=== PATIENT | female | born 1965 | race Hispanic/Latino ===

== ENCOUNTER 2018-12-10 05:44 | Day surgery (SDC) | payer MEDICAID ==
[~2018-12-10] VITALS: Ht 165.1 cm; Wt 96.2 kg
[~2018-12-10 05:44] MED LIST: DULO60CA44 PO; EMPA25TA PO; INSLAN SQ; METF-527 PO; OMEP40CA37 PO; SIMV40TA5 PO; SODIUM CHLORIDE 0.9% 1000ML 1,000 ML IV ONE; ZOLP10TA2 PO; [UNRECOGNIZED DRUG - CODE] PO
[2018-12-10 06:54] VITALS: BP 122/50
[2018-12-10] MEDS ORDERED: RISPERDAL PO (07:09)
[2018-12-10] MEDS ORDERED: METF-446 PO (07:09)
[2018-12-10 07:57] VITALS: BP 104/53
[2018-12-10 08:00] VITALS: BP 110/53
[2018-12-10 08:07] VITALS: BP 109/67
[2018-12-10 08:12] VITALS: BP 128/73
== END 2018-12-10 08:35 | disposition home or self-care (01) ==
LOC: ENDO 05:44 → DAH 05:44 → ENDO 08:35
PROVIDERS: ATTEND Internal Medicine
DX: K29.70 Gastritis, unspecified, without bleeding (principal); B96.81 Helicobacter pylori [H. pylori] as the cause of diseases classified elsewhere; K21.9 Gastro-esophageal reflux disease without esophagitis; E66.9 Obesity, unspecified; E78.5 Hyperlipidemia, unspecified; E11.9 Type 2 diabetes mellitus without complications; F32.9 Major depressive disorder, single episode, unspecified; Z88.0 Allergy status to penicillin; Z79.4 Long term (current) use of insulin; Z79.899 Other long term (current) drug therapy; Z86.010 Personal history of colon polyps; Z72.89 Other problems related to lifestyle; Z90.710 Acquired absence of both cervix and uterus; Z68.37 Body mass index [BMI] 37.0-37.9, adult; Z79.84 Long term (current) use of oral hypoglycemic drugs; Z87.891 Personal history of nicotine dependence; Z82.49 Family history of ischemic heart disease and other diseases of the circulatory system
CPT/HCPCS: 43239; 82948 ×2; 88305; A4606; J7030